=== PATIENT | male | born 1950 | race Caucasian/White ===

== ENCOUNTER → 2019-08-13 15:26 | Outpatient (CLI) | payer MEDICARE, BC, OTHER, SELFPAY ==
--- NOTE | 2019-08-13 15:34 | VDLE_ITS ---
Reason For Study: swelling RIGHT GSV is normal. CFV is compressible, spontaneous, phasic, competent and demonstrates normal augmentation. FV is compressible, spontaneous, phasic, competent and demonstrates normal augmentation. POP V is compressible, spontaneous, phasic, competent and demonstrates normal augmentation. T/P Trunk is compressible. PTV is compressible. RT PerV is compressible. Procedure Exam performed in department. The exam was abbreviated due to the COVID 19 protocol. The exam was diagnostic. A preliminary report was called and/or faxed to [facility]. Interpretation Summary Deep veins of the right lower extremity are patent and compressible segmentally. There is no evidence of right lower extremity deep vein thrombosis. Valvular competence appears intact within the proximal deep venous system on the right . The right great saphenous vein appears patent and compressible segmentally. Ordering Physician: Candice Marvin Performed By: Compa Nieto RVT
== END ==
PROVIDERS: PCP Internal Medicine; Referring Provider Internal Medicine; Visit Provider Internal Medicine
DX: M79.89 Other specified soft tissue disorders (principal)
CPT/HCPCS: 93971

== ENCOUNTER → 2019-09-07 13:09 | Outpatient (CLI) | payer MEDICARE, BC, OTHER, SELFPAY ==
--- NOTE | 2019-09-07 13:10 | CT_ITS ---
STUDY: CT ABDOMEN AND PELVIS WITH CONTRAST REASON FOR EXAM: Male, 69 years old. PT STATED RT LEG SWELLING WITH NEGATIVE DOPPLER US RADIATION DOSAGE (If Supplied By Facility): CTDIvol = ( 11.99 ) mGy, DLP = ( 1248.88 ) mGycm TECHNIQUE: Transaxial images were obtained from the dome of the diaphragm to the symphysis pubis without oral contrast. IV contrast was administered. Sagittal and coronal images were reconstructed. Individualized dose optimization techniques were used for this CT. COMPARISON: None. FINDINGS: The visualized lung bases are unremarkable. The visualized portions of the heart are within normal limits. There is decreased attenuation of the liver consistent with steatosis. Normal gallbladder and extrahepatic biliary system. Normal spleen. There is a 1.8 cm x 1.5 cm well-defined fat containing nodule in the body of the pancreas. Correlation with the MRI examination is recommended. Normal bilateral adrenal glands. Normal right kidney. Normal left kidney. There is a small hiatal hernia. Normal small intestine. There are multiple colonic diverticula consistent with diverticulosis. The appendix is visualized and appears normal. There is diffuse atherosclerotic calcification of the abdominal aorta, without a demonstrated aneurysm. Normal inferior vena cava. Normal retroperitoneum. Normal urinary bladder. There is a small umbilical hernia containing fat. Small bilateral inguinal hernias containing fat. Grade 1 anterolisthesis of L5 on S1 with spondylolysis of the pars interarticularis of the L5 vertebrae. This space narrowing and spondylosis at the L5-S1 level. CT/Abdomen/Pelvis WITH Contrast IMPRESSION: 1.8 cm x 1.5 cm well-defined fat containing nodule in the body of the pancreas. Correlation with MRI examinations recommended. Sigmoid diverticulosis. Findings infiltration of the liver. Grade 1 anterior listhesis of L5 on S1 with spondylolysis of the pars intraarticularis of the L5 vertebrae. Electronically Signed: Landon Naidu, at 14:03 EDT , Service support ,
[2019-09-07 13:35] LABS: CREATININE FINGERSTICK 0.8 mg/dL (0.70-1.30); EGFR FINGERSTICK > 60.0000 mL/min (>60)
== END ==
PROVIDERS: PCP Internal Medicine; Referring Provider Internal Medicine; Visit Provider Internal Medicine
DX: R10.84 Generalized abdominal pain (principal); M79.89 Other specified soft tissue disorders
CPT/HCPCS: 74177; Q9967

== ENCOUNTER → 2019-09-17 12:26 | Outpatient (CLI) | payer MEDICARE, BC, OTHER, SELFPAY ==
--- NOTE | 2019-09-17 12:34 | MRI_ITS ---
HISTORY: Pancreatic fatty nodule versus neoplasm. Comparison study is a CT scan of the abdomen and pelvis from September 07, 2019 Technique: Axial and coronal T1 and T2 with some T2 fat sat series were obtained. These were obtained through the pancreas and abdomen. Following the uneventful administration of 17 cc of Dotarem intravenous gadolinium multi phases of T1 post gadolinium were obtained in the axial plane. Coronal T1 post-deidra series were also obtained. 839 images. Within the junction between the body of the tail of the pancreas there is the same lesion that was seen on the CT scan. The lesion measures 1.9 x 1.2 x 1.5 cm. It is hypointense on T2 fat saturated series. It is hyperintense on T2 weighted series. It is hypointense on T1 out of phase imaging. It is barely discernible on T1 in phase imaging but is hyperintense. On the T1 fat saturated series it is hypointense. On the post gadolinium series, almost all of which are fat saturated, it is hypointense but with some enhancing septations The liver, spleen, and adrenal glands are normal. Some benign cysts are present on the left kidney. The aorta and IVC are normal. Lung bases are clear. No effusions. The stomach is decompressed. Visualized bowel gas pattern is normal. The gallbladder is normal without cholelithiasis. 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 at 0540 Reported and signed by: Estiven Knott MD Electronically Signed: Estiven Knott MD at 5:39 EDT Tel , Service support ,
== END ==
PROVIDERS: PCP Internal Medicine; Referring Provider Internal Medicine; Visit Provider Internal Medicine
DX: D49.0 Neoplasm of unspecified behavior of digestive system (principal)
CPT/HCPCS: 74183; A9575

== ENCOUNTER → 2019-11-15 09:42 | Outpatient (CLI) | payer MEDICARE, OTHER, SELFPAY ==
--- NOTE | 2019-11-15 09:50 | CT_ITS ---
STUDY: LOW DOSE CT LUNG CANCER SCREENING REASON FOR EXAM: Male, 69 years old. EX SMOKER X 10 YEARS. SMOKED FOR 50 YEARS RADIATION DOSAGE (If Supplied By Facility): CTDIvol = ( 3.02 ) mGy, DLP = ( 101.56 ) mGycm TECHNIQUE: No contrast was administered. Low dose technique was utilized (average mAS-38 and kVp 120). 1.25 mm axial source images with a slice interval of 1.25-mm were reconstructed in lung windows. 2.5 mm axial source images with a slice interval of 2.5-mm were reconstructed in lung windows. 5.0 mm axial source images with a slice interval of 5.0-mm were reconstructed in soft tissue windows. Nodule measured using lung windows on PACS and/or independent workstation with automated measurement of minimum and maximum diameter. Nodule measurement reported as average diameter rounded to the nearest whole number. Growth is defined as an increase ins size of greater than 1.5 mm. COMPARISON: None. NODULES: No suspicious nodules are seen. Calcified granuloma in the right upper lobe. Emphysema: Hyperinflation. Mild emphysematous changes in the upper lobes with some scarring at both lung apices. Endobronchial lesion: Aorta: Atherosclerotic plaque formation of the aortic arch. Coronary arteries: Unremarkable. Heart: Unremarkable Pulmonary artery: Unremarkable Mediastinal nodes: Calcified subcarinal and right hilar lymph nodes. Other chest and abdominal findings: Degenerative changes of the visualized thoracic spine. CT/Low Dose CT Lung Screening IMPRESSION: Lung-RADS category 2 - Continue annual screening with LDCT in 12 months. IMPORTANT NOTES FOR USE: ACR Lung-RADS Version 1.0 Assessment Categories Release Date: June 18, 2013 Category: Coded 0-4 bases on nodule(s) with highest degree of suspicion. Negative screen is defined as categories 1 and 2; a positive screen is defined as categories 3 and 4. Category 3 and 4A nodules that are unchanged on interval CT should be coded as category 2, and individuals returned to screening in 12 months. Category 4X: Category 3 or 4 nodules with additional imaging findings that increase the suspicion of lung cancer, such as spiculation, GGN that doubles in size in 1 year, enlarged lymph notes, etc. Category Modifiers: S (significant finding unrelated to lung cancer) and C (prior history of treated lung cancer) may be added to the 0-4 Lung-RADS Electronically Signed: Landon Naidu, at 10:32 EDT , Service support ,
== END ==
PROVIDERS: PCP Internal Medicine; Referring Provider Internal Medicine; Visit Provider Internal Medicine
DX: Z87.891 Personal history of nicotine dependence (principal)
CPT/HCPCS: G0297

== ENCOUNTER → 2019-11-30 13:44 | Outpatient (CLI) | payer SELFPAY ==
[2019-11-30 13:58] VITALS: BP 122/71; PULSE 59; RESP 14; TEMP 36.9; O2SAT 98; BMI 25.8
--- NOTE | 2019-11-30 14:05 | CT_ITS ---
STUDY: CARDIAC CALCIUM SCORING - CT CHEST REASON FOR EXAM: Male, 69 years old. Hyperlipidemia. RADIATION DOSAGE (If Supplied By Facility): CTDIvol = ( 12.19 ) mGy, DLP = ( 268.17 ) mGycm TECHNIQUE: Axial non-enhanced images were acquired through the heart for the sole purpose of measuring coronary artery calcium. Individualized dose optimization techniques were used for this CT. COMPARISON: CT of the chest, 11/15/2019. FINDINGS: This portion of the report is being generated solely for the evaluation of noncoronary artery structures which have been assessed on plain another report.. There is minimal emphysematous changes lungs without infiltrate or soft tissue mass. There is a 4 mm calcified granuloma in the right upper lobe best seen on image 6 series 3. The heart is normal in size. Normal pericardium. There are partially calcified mediastinal and hilar lymph nodes. Normal pulmonary arteries. There is minimal atherosclerotic changes of the thoracic aorta without aneurysm. There are degenerative changes of the thoracic spine. Calcified granulomata are seen within the liver and spleen. The upper abdomen is otherwise unremarkable. CT/Limited Chest CT w/CCTA IMPRESSION: 1. Old granulomatous disease. 2. Atherosclerotic changes of the thoracic aorta. Electronically Signed: Hilario Evans DO at 15:01 EDT Tel [phone], Service support ,
--- NOTE | 2019-11-30 16:26 | CA.SCORE ---
Calcium Scoring Date of Study:: 11/30/19 Coronary Calcium Scoring: High-resolution Computed Tomographic imaging of the chest was performed on 11/30/2019 with particular attention paid to the coronary arteries. Images from the examination were analyzed for the presence and extent of coronary artery calcification , using coronary calcium quantification software. The patient tolerated the procedure well and there were no complications. The results of the coronary calcification analysis are provided below. - Findings Left Main (LM): 0 Left Anterior Descending (LAD): 0 Left Circumflex (LCX): 0 Right Coronary Artery (RCA): 0 Total Agatston Score: 0 Percentile Ranking: Percentile rankin%: According to pre-published reference table 0% of the people of the same gender/similar age had the same/lower scores Calcium Scoring Interpretation: 0 No identifiable atherosclerotic plaque. Very low cardiovascular disease risk. <5% chance of presence coronary artery disease A Negative Examination 1-10 Minimal Plaque burden. Significant coronary artery disease very unlikely. 11-100 Mild plaque burden. Likely mild or minimal coronary atherosclerosis. 101-400 Moderate plaque burden Moderate non-obstructive coronary artery disease highly likely. Over 400 Extensive plaque burden. High likelihood of at least one significant coronary stenosis (>50% diameter) Calcium Score: 0 Negative Examination - Continue cardiovascular risk factor evaluation care as deemed appropriate.
== END ==
PROVIDERS: PCP Internal Medicine; Referring Provider Internal Medicine; Visit Provider Internal Medicine
DX: E78.5 Hyperlipidemia, unspecified (principal)
CPT/HCPCS: 75571; 76380

== ENCOUNTER → 2020-08-19 14:53 | Outpatient (CLI) | payer MEDICARE, SELFPAY ==
[2019-11-30 13:58] VITALS: BMI 25.8
--- NOTE | 2020-08-19 14:55 | ECHOD_ITS ---
Reason For Study: Abnormal EKG Procedure This was a 2D Doppler, Color Flow transthoracic echocardiogram. The study was technically difficult. Exam performed in department. Left Ventricle Normal LV size. Left ventricular systolic function is normal. The estimated ejection fraction is 60 %. No evidence for diastolic dysfunction. No regional wall motion abnormalities noted. Right Ventricle Normal RV size. Normal systolic function. Atria Normal left atrium. Normal right atrium. No doppler evidence for ASD. Mitral Valve There is no mitral annular calcification. Normal mitral valve. Trivial mitral valve insufficiency. Tricuspid Valve Normal tricuspid valve. Trivial tricuspid valve insufficiency. Right ventricular systolic pressure estimated to be 28 mmHg. Aortic Valve Trisinus/trileaflet aortic valve. Normal aortic valve. Pulmonic Valve The pulmonic valve is not well visualized. Great Vessels Normal sized aortic root. Pericardium/Pleural No pericardial effusion. MMode/2D Measurements & Calculations LVIDd: 4.7 cm IVSd: 1.0 cm Ao root diam: 3.2 cm LVIDs: 2.8 cm LVPWd: 0.93 cm LA dimension: 3.7 cm FS: 40.2 % LAV(MOD-bp): 69.7 ml LA A4 area: 21.5 cm2 RA A4 area: 14.9 cm2 LAV(MOD-bp) Indexed: 34.6 ml/m2 LAV(MOD-sp2): 69.3 ml LAV(MOD-sp4): 66.0 ml Time Measurements MV dec time: 0.33 sec Doppler Measurements & Calculations MV E max sohail: 57.7 cm/sec Lat Peak E' Sohail: 11.3 cm/sec Med Peak E' Sohail: 10.8 cm/sec MV A max sohail: 72.8 cm/sec E/E' lat: 5.1 E/E' med: 5.4 MV E/A: 0.79 MV V2 max: 77.0 cm/sec MV P1/2t max sohail: 61.0 cm/sec Ao V2 max: 117.1 cm/sec MV max P.4 mmHg MV P1/2t: 99.5 msec Ao max P.5 mmHg MV V2 mean: 41.1 cm/sec MV dec slope: 179.5 cm/sec2 MV mean P.78 mmHg MVA(P1/2t): 2.2 cm2 MV V2 VTI: 21.9 cm LV V1 max: 110.2 cm/sec PA V2 max: 169.5 cm/sec TR max sohail: 247.9 cm/sec LV V1 max P.9 mmHg TR max P.6 mmHg ECHO/Echo Complete Interpretation Summary The study was technically difficult. Left ventricular systolic function is normal. The estimated ejection fraction is 60 %. Trivial mitral valve insufficiency. Trivial tricuspid valve insufficiency. Right ventricular systolic pressure estimated to be 28 mmHg. No evidence for diastolic dysfunction. Ordering Physician: Candice Marvin Referring Physician: Candice Marvin Performed By: Jamir Palencia RCS
--- NOTE | 2020-08-19 15:26 | CT_ITS ---
STUDY: CT ABDOMEN WITHOUT CONTRAST REASON FOR EXAM: Male, 70 years old. PANCREAS NEOPLASM RADIATION DOSAGE (If Supplied By Facility): CTDIvol = ( 13.87 ) mGy, DLP = ( 512.00 ) mGycm TECHNIQUE: Transaxial images were obtained without intravenous contrast, and without oral contrast. Sagittal and coronal images were reconstructed. Individualized dose optimization techniques were used for this CT. COMPARISON: MR abdomen 09/17/2019. CT abdomen and pelvis 09/07/2019 FINDINGS: The visualized lung bases are unremarkable. The visualized portions of the heart are within normal limits. Normal liver. Normal gallbladder and extrahepatic biliary system. There are multiple benign calcified granulomata of the spleen. 2 x 2 centimeters fatty mass within the body of the pancreas unchanged in size and configuration. Normal bilateral adrenal glands. Normal right kidney. Normal left kidney. Normal visualized stomach. Normal small intestine. Colonic diverticulosis. Increased stool throughout the colon. The appendix is visualized and appears normal. Normal abdominal aorta. Normal inferior vena cava. Normal retroperitoneum. There is a small umbilical hernia containing fat. Grade 1 spondylolisthesis spondylolysis L5-S1. CT/Abdomen without IV Contrast IMPRESSION: Stable fatty pancreatic mass. Increased stool. Electronically Signed: Christ Weaver MD at 17:24 EDT , Service support ,
== END ==
PROVIDERS: PCP Internal Medicine; Referring Provider Internal Medicine; Visit Provider Internal Medicine
DX: D49.0 Neoplasm of unspecified behavior of digestive system (principal); R94.31 Abnormal electrocardiogram [ECG] [EKG]
CPT/HCPCS: 74150; 93306

== ENCOUNTER → 2020-11-17 12:45 | Outpatient (CLI) | payer MEDICARE, SELFPAY ==
[2019-11-30 13:58] VITALS: BMI 25.8
--- NOTE | 2020-11-17 12:46 | CT_ITS ---
STUDY: LOW DOSE CT LUNG CANCER SCREENING REASON FOR EXAM: Male, 70 years old. TOBACCO Abuse, in REMISSION. Patient smoked 1 pack a day for 50 years. RADIATION DOSAGE (If Supplied By Facility): CTDIvol = ( 3.01 ) mGy, DLP = ( 98.92 ) mGycm TECHNIQUE: No contrast was administered. Low dose technique was utilized (average mAS-38 and kVp 120). 1.25 mm axial source images with a slice interval of 1.25-mm were reconstructed in lung windows. 2.5 mm axial source images with a slice interval of 2.5-mm were reconstructed in lung windows. 5.0 mm axial source images with a slice interval of 5.0-mm were reconstructed in soft tissue windows. Nodule measured using lung windows on PACS and/or independent workstation with automated measurement of minimum and maximum diameter. Nodule measurement reported as average diameter rounded to the nearest whole number. Growth is defined as an increase ins size of greater than 1.5 mm. COMPARISON: Comparison is made with prior examination dated 11/15/2019. NODULES: No suspicious nodules are seen. Emphysema: Hyperinflation. Stable scarring at the lung apices. Emphysematous changes worse in the upper lobes. Endobronchial lesion: None Aorta: Atherosclerotic calcific plaque of the aortic arch Coronary arteries: Mediastinal nodes: Calcified precarinal lymph nodes and right hilar lymph node. Other chest and abdominal findings: CT/Low Dose CT Lung Screening IMPRESSION: Lung-RADS category 2 - Continue annual screening with LDCT in 12 months. IMPORTANT NOTES FOR USE: ACR Lung-RADS Version 1.1 Assessment Categories Release Date: 2018 Category: Coded 0-4 bases on nodule(s) with highest degree of suspicion. Negative screen is defined as categories 1 and 2; a positive screen is defined as categories 3 and 4. Category 3 and 4A nodules that are unchanged on interval CT should be coded as category 2, and individuals returned to screening in 12 months. Category 4X: Category 3 or 4 nodules with additional imaging findings that increase the suspicion of lung cancer, such as spiculation, GGN that doubles in size in 1 year, enlarged lymph notes, etc. Category Modifiers: S (significant finding unrelated to lung cancer) Electronically Signed: Lnadon Naidu MD at 13:52 EDT , Service support ,
== END ==
PROVIDERS: PCP Internal Medicine; Referring Provider Internal Medicine; Visit Provider Internal Medicine
DX: Z87.891 Personal history of nicotine dependence (principal)
CPT/HCPCS: 71271

== ENCOUNTER → 2021-07-13 | Outpatient (CLI) | payer MEDICARE, SELFPAY ==
--- NOTE | 2021-07-13 12:39 | US_ITS ---
INDICATION: R TESTICULAR PAIN, RULE OUT TORSION EXAMINATION: Ultrasound US Scrotum (Contents) TECHNIQUE: Realtime ultrasound of the testicles was performed with grayscale, Color Doppler and spectral Doppler analysis. COMPARISON: None. FINDINGS: RIGHT: TESTIS: 3.2 x 2.5 x 1.5 cm. The right testicle is asymmetrically smaller than the left testicle. There is somewhat heterogeneous appearance of the right testicle when compared to the left. There is a ill-defined nonspecific 0.8 x 0.9 x 0.7 cm heterogeneous predominately hypoechoic area in the upper pole with irregular borders. There is no internal vascularity detected. COLOR DOPPLER: There is normal arterial and venous flow. However when compared to the left, there is asymmetrically slightly decreased arterial flow to the right testicle. EPIDIDYMIS: Normal in size and echotexture, without focal lesion. [Normal color Doppler flow pattern in the epididymis. HYDROCELE: Trace right-sided hydrocele. VARICOCELE: None. LEFT: TESTIS: 3.8 x 2.9 x 2.3 cm. Normal in size and echotexture, without focal lesion. COLOR DOPPLER: Normal arterial flow present in the testicle with monophasic waveforms. EPIDIDYMIS: Normal in size and echotexture, without focal lesion. [Normal color Doppler flow pattern in the epididymis. HYDROCELE: Trace left hydrocele. VARICOCELE: None. US/Testicular with Arterial Flow IMPRESSION: 1. Normal flow is identified to both testicles. However, when compared to the left kidney, there is is slightly decreased arterial flow to the right testicle and overall slightly smaller size of the testicle. Findings are nonspecific but may relate to chronic vascular etiology. 2. 0.9 cm ill-defined poorly characterized heterogeneous area in the upper pole of the right testicle with no internal vascularity detected. Findings are nonspecific but differential considerations include chronic infarct, hematoma, or developing mass/neoplasm. Repeat ultrasound in 4 weeks is recommended to assess stability. 3. Trace bilateral hydroceles. Findings were discussed with Dr. Marvin at 1430 on 07/13/[address] SINGH. Electronically Signed: Cristiano Singh, at 14:40 EDT ,
== END | disposition home or self-care (01) ==
LOC: CT 11:46 → US 12:37
PROVIDERS: PCP Internal Medicine; Visit Provider Internal Medicine
DX: N50.811 Right testicular pain (principal)
CPT/HCPCS: 76870; 93976

== ENCOUNTER → 2021-07-22 | Outpatient (CLI) | payer MEDICARE, SELFPAY ==
--- NOTE | 2021-07-22 16:53 | CT_ITS ---
EXAM: CT ABDOMEN AND PELVIS WITH INTRAVENOUS CONTRAST CLINICAL INDICATION: RLQ DISCOMFORT TECHNIQUE: Helically acquired images were obtained of the abdomen and pelvis with intravenous contrast. This CT exam was performed using one or more of the following dose reduction techniques: automated exposure control, adjustment of the mA and/or kV according to patient size, and/or use of iterative reconstruction technique. This report was created using [employer] report generation technology. CONTRAST: 100 cc of Isovue-300 IV. Redicat oral contrast. RADIATION DOSE: CTDIvol = 13.98 mGy, DLP = 791.10 mGy-cm. COMPARISON: 08/19/2020. FINDINGS: LOWER THORAX: Unremarkable. Lung bases are clear. No cardiomegaly. No significant pericardial effusion. ABDOMEN: LIVER: There is diffuse low-attenuation of the liver. GALLBLADDER AND BILE DUCTS: Unremarkable. No calcified gallstones. No gallbladder distention or wall edema. No intra- or extrahepatic biliary ductal dilation. PANCREAS: Small fat-containing lesion measuring 1.5 cm in the body of the pancreas unchanged since previous exam. SPLEEN: Unremarkable. Normal size without focal cystic or solid mass. ADRENALS: Unremarkable. No nodules. KIDNEYS AND URETERS: Unremarkable. Normal renal size and position. No hydronephrosis. STOMACH AND BOWEL: Numerous sigmoid diverticula without diverticulitis. Moderate amount of fecal material throughout colon. No stomach or bowel distention. PELVIS: APPENDIX: No evidence of acute appendicitis. BLADDER: Unremarkable. REPRODUCTIVE: Unremarkable as visualized. No mass. ABDOMEN and PELVIS: INTRAPERITONEAL SPACE: Unremarkable. No ascites or other fluid collection. No free air. BONES/JOINTS: Unremarkable. No suspicious lytic or blastic abnormality. SOFT TISSUES: Unremarkable. No discrete abdominal or pelvic wall hernia. VASCULATURE: Unremarkable. Abdominal aorta is non-dilated. LYMPH NODES: Unremarkable. No enlarged lymph nodes. CT/Abdomen/Pelvis WITH Contrast IMPRESSION: 1. Small fat-containing lesion measuring 1.5 cm in the body of the pancreas unchanged since previous exam. 2. Fatty liver. 3. Numerous sigmoid diverticula without diverticulitis. 4. Constipation. Electronically Signed: Naga Maurice MD at 7:23 EDT ,
[2021-07-22 17:05] LABS: CREATININE FINGERSTICK < 0.9 mg/dL (0.70-1.30); EGFR FINGERSTICK > 60.0000 mL/min (>60)
== END | disposition home or self-care (01) ==
LOC: CT 16:52
PROVIDERS: PCP Internal Medicine; Referring Provider Internal Medicine; Visit Provider Internal Medicine
DX: R10.31 Right lower quadrant pain (principal)
CPT/HCPCS: 74177; Q9967

== ENCOUNTER → 2021-10-22 | Outpatient (CLI) | payer MEDICARE, SELFPAY ==
[2021-10-22 10:26] LABS: Hematocrit 44.2 % (40-54); Hemoglobin 14.5 g/dL (13.0-16.5); Mean Corp Hgb Conc 32.8 g/dL (32-36); Mean Corpuscular Hgb 30.4 pg (27.0-32.0); Mean Corpuscular Volume 92.7 fL (80-94); Platelet Count 228 K/mm3 (150-450); RBC Distribution Width CV 13.2 % (11.6-14.6); Red Blood Count 4.77 M/mm3 (4.6-6.2); White Blood Count 6.8 K/mm3 (4.4-11.0)
[2021-10-22 10:59] LABS: Anion Gap 5 (5-15); BUN 13 mg/dL (7-18); BUN/Creat Ratio 12.9 RATIO (10-20); Calcium,Total 8.7 mg/dL (8.5-10.1); Chloride 107 mmol/L (98-107); Creatinine, Serum 1.01 mg/dL (0.70-1.30); EST Glomerular Filtration Rate 77 mL/min (>60); Est Glom Filt Rate - Afr Amer 93 mL/min (>60); Glucose 124 mg/dL (74-106); Potassium 4.1 mmol/L (3.5-5.1); Sodium Level 141 mmol/L (136-145)
== END | disposition home or self-care (01) ==
LOC: LAB 09:57
PROVIDERS: PCP Internal Medicine; Visit Provider Urology
DX: Z01.812 Encounter for preprocedural laboratory examination (principal)
CPT/HCPCS: 36415; 80048; 85027

== ENCOUNTER → 2021-11-03 | Outpatient (CLI) | payer MEDICARE, SELFPAY ==
--- NOTE | 2021-11-03 13:59 | EKG12_ITS ---
Test Reason : PRE OP Blood Pressure : / mmHG Vent. Rate : 065 BPM Atrial Rate : 065 BPM P-R Int : 158 ms QRS Dur : 096 ms QT Int : 434 ms P-R-T Axes : 065 022 066 degrees QTc Int : 451 ms Normal sinus rhythm Normal ECG Confirmed by STEVO VENEGAS, ILENE ([id number]), advertising editor MELISSA DE SANTIAGO ([id number]) on 11/04/2021 8:41:08 AM Referred By: Zhen Castillo Confirmed By:ILENE WHITESIDE MD
== END | disposition home or self-care (01) ==
LOC: PSN 13:56
PROVIDERS: PCP Internal Medicine; Referring Provider Urology; Visit Provider Urology
DX: Z01.810 Encounter for preprocedural cardiovascular examination (principal)
CPT/HCPCS: 93005

== ENCOUNTER → 2021-11-06 | Outpatient (CLI) | payer MEDICARE, SELFPAY ==
--- NOTE | 2021-11-06 | MASS_PTH ---
PATIENT: IBIS EASTON [facility] U#:[id number] AGE/SX: 71/M ROOM: RE11/06/[address]: Dr. Zhen Castillo MD : [id number] BED: DIS: 11/06/2021 SPEC #: [id number] RECD: 11/09/21 08:03 STATUS: ELIAZAR BRADY #: [id number] DON: 11/06/21 00:[address]: Zhen Castillo DEPT: SURGICAL PATHOLOGY RECD BY: Daya Ng ENTERED: 11/09/21 08:06 SP TYPE: Mass OTHR DR: Dr. 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 See comment. AM:tracee 11/10/2021 COMMENT Sections show seminal tubule fibrosis with regional aspermatogenesis and focal Leydig cell hyperplasia. There is no evidence of malignancy or intratubular germ cell neoplasia. Clinical correlation is suggested. Case has been reviewed in consultation with Dr. Cantu who concurs with the above diagnosis. IDC:[id number] MICROSCOPIC DESCRIPTION Slides are reviewed. GROSS DESCRIPTION Received in fixative is one container labeled with the patient's name and designated right testicle mass. The specimen consists of an orchiectomy specimen weighing 22.8 gm and measuring 5 x 4 x 3 cm. Spermatic cord measures 0.8 cm in length and up to 2 cm in diameter. The outer surface is ragged. Sections reveal a ellis-white, solid, ill-defined area, a probable mass, measuring 1.5 x 0.5 x 0.5 cm. This area appears to be confined to the testes. Sections of the rest of the testicle parenchyma reveal unremarkable cut surfaces. The tunica albuginea appears to be markedly thickened. No additional mass lesion is identified. Medical Engineer sections are submitted in ten cassettes as follows: 1 - spermatic cord resection margin 2 - additional sections spermatic cord, 3-5 - entire ill-defined ellis-white mass, 6-10 - additional sections testicular parenchyma with epididymis. Most of the testicular tissue is submitted. / SJ:tracee 11/09/2021 TC:5 CPT: 83484
== END | disposition home or self-care (01) ==
LOC: LABSPEC 15:12
PROVIDERS: PCP Internal Medicine; Visit Provider Urology
DX: N50.89 Other specified disorders of the male genital organs (principal)
CPT/HCPCS: 88305; 88307